=== PATIENT | male | born 1965 | race Caucasian/White ===

== ENCOUNTER → 2019-04-04 07:58 | Outpatient (CLI) | payer BC ==
--- NOTE | 2019-04-08 14:37 | ST ---
PATIENT:ROXANNA JARA MEDICAL RECORD: [id number] SEX: M LOCATION:[facility] ORDER #: ADMISSION DATE: 04/04/19 AGE OF PATIENT: 54 REFERRING PHYSICIAN: INTERPRETING PHYSICIAN: LIDYA VIGIL MD DATE OF SERVICE: 04/04/2019 Nuclear Stress Test INDICATIONS: Angina, abnormal ECG, hypertension, and hyperlipidemia. He was exercised in a standard Juanjose protocol for 5 minutes 45 seconds achieving greater than 85% max target heart rate response with 33 mCi of sestamibi injected at peak stress and 11 mCi used previously for rest images. FINDINGS: Gated SPECT reveals preserved ejection fraction at 57%; however, there is decreased thickening and brightening throughout all the inferior segments. SPECT IMAGING: Cardiolite was used as myocardial perfusion agent. There is a perfusion defect inferoapically. There is no evidence of reversibility, in fact it improves with stress. The remaining segments are homogeneous uptake at rest and stress. OVERALL IMPRESSION: This is an abnormal nuclear stress test. Fixed perfusion defect inferoapically, no reversible ischemia, improvement with stress. Continue medical management of the coronary artery disease and cardiac risk factors. TRANSINT:[id number] Voice Confirmation ID: [id number] DOCUMENT ID: [id number] LIDYA VIGIL MD at 1437 CC: FARTUN RAMIREZ [id number] DICTATION DATE: 04/04/19 1333 CREDIT FRONT OFFICE DEVELOPER: 04/05/19 0320 DEP CLI 04/04/19 [place] [id number] [place] [id number]
--- NOTE | 2019-04-09 14:16 | EC ---
PATIENT:ROXANNA JARA DATE OF SERVICE: 04/04/19 SEX: M MEDICAL RECORD: [id number] DATE OF : 65 [facility] AGE [facility] PATIENT: 54 ADMISSION DATE: 04/04/19 REFERRING PHYSICIAN: INTERPRETING PHYSICIAN: KARIS HUTCHINS MD ECHOCARDIOGRAM REPORT ECHO CHARGES 4 ECHO COMPLETE Date: 04/04/19 CLINICAL DIAGNOSIS: ANGINA/ABNORMAL EKG/MURMUR H/O HTN ECHOCARDIOGRAPHIC MEASUREMENTS (adult normal given) AC root (d.<3.7cm) 3.5 cm LV Septum d (<1.2 cm> 1.1 cm Valve Excursion 2.5 cm LV Septum (systole) 1.7 cm Left Atria (s.<4.0cm> 4.9 cm LVPW d(<1.2cm) 1.2 cm RV (d.<2.3cm) 3.1 cm LVPW (sytole) 2.1 cm LV diastole(<5.6CM) 6.4 cm MV E-F(>70mm/sec) cm LV systole 4.0 cm LVOT Diameter 2.4 cm MV exc.(>10mm) cm Est.ejection fraction (50-75%) % DOPPLER: LVIT cm/sec A 52.0 cm/sec E 85.0 cm/sec LA cm/sec RVSP 25.0 mmHg LVOT 88.0 cm/sec AOP1/2T m/s Asc. Ao 123 cm/sec RVOT 61.0 cm/sec RA cm/sec PA 82.0 cm/sec AV Gradient Peak 6.1 mmHg AV Mean 3.2 mmHg AV Area 3.7 cm MV Gradient Peak 3.5 mmHg MV Mean 1.4 mmHg MV Area cm COMMENTS: OP - HC Lint Cleaner: 1 FATMATA YAMILE Warp Trucker: 3 Dr. Moffett TAPE# PACS Pericardial Effusion N DATE OF SERVICE: Adequate 2D, color flow and spectral Doppler, and M-Mode. No LVH. LV internal dimensions are normal. Wall motion is normal. EF is greater than or equal to 55%. Aortic valve is tricuspid. No evidence of stenosis by Doppler interrogation. Left atrium dilated at 4.9 cm. Mitral valve shows no prolapse. Mild MR. Right-sided chambers grossly normal. Trace TR. TRANSINT:[id number] Voice Confirmation ID: [id number] DOCUMENT ID: [id number] ECHOCARDIOGRAM REPORT [id number] ROXANNA JARA,KARIS [place] MD at 1416 CC: [id number] DICTATION DATE: 04/07/19 150 SOCIAL MEDIA DIRECTOR: 04/07/19 1519 DEP CLI 04/04/19 [place] [id number] [place] [id number]
== END | disposition home or self-care (01) ==
LOC: D.HCCARDIO 07:58
PROVIDERS: ATTEND Internal Medicine Interventional Cardiology
DX: I20.9 Angina pectoris, unspecified (principal)

== ENCOUNTER → 2019-04-09 15:37 | Outpatient (CLI) | payer BC | END | disposition home or self-care (01) | LOC: D.US 15:00 | PROVIDERS: ATTEND Emergency Medicine | DX: R60.0 Localized edema (principal) ==